=== PATIENT | female | born 1955 | race Caucasian/White ===

== ENCOUNTER 2023-06-25 12:02 | Inpatient (IN) ==
[2023-06-25] MEDS ORDERED: Heparin IV Adult Wt-Based Standard w/ INITIAL Bolus Protocol IV STA (13:22)
[2023-06-25] MEDS ORDERED: HEPARIN SOD (PORCINE) 1000 UNIT/ML IV ONE (13:37)
[2023-06-25 13:55] LABS: BUN Creatinine Ratio 22.4 (10-20); Calcium 9.5 mg/dl (8.6-10.3); Creatinine Clr Calc Pharmacy 77.1 ml/min; Est GFR (African American) 106.2 ml/min; Est GFR (Non-African American) 91.6 ml/min; Potassium 3.3 mmol/L (3.5-5.1)
[2023-06-25 13:58] LABS: Basophils # (auto) 0.08 K/uL (0.00-0.20); Basophils % (auto) 0.8 %; Eosinophils # (auto) 0.22 K/uL (0.00-0.50); Eosinophils % (auto) 2.2 %; Hematocrit (blood only) 45.9 % (37.0-47.0); Hemoglobin 15.3 g/dl (12.0-16.0); Immature Granulocytes # (auto) 0.05 K/uL (0.01-0.20); Immature Granulocytes % (auto) 0.5 %; Lymphocytes # (auto) 2.27 K/uL (1.20-3.40); Lymphocytes % (auto) 22.7 %; Mean Corpuscular Hgb Conc 33.3 g/dL (32.0-36.0); Mean Corpuscular Volume 92.9 fL (80.0-100.0); Mean Platelet Volume 9.5 fL (9.4-12.4); Monocytes # (auto) 0.86 K/uL (0.11-0.59); Monocytes % (auto) 8.6 %; Neutrophils # (auto) 6.51 K/uL (1.40-6.50); Neutrophils % (auto) 65.2 %; Platelet Count 380 K/uL (130-400); RDW Coefficient of Variation 14.2 % (11.5-14.5); RDW Standard Deviation 47.7 fL (36.4-46.3); Red Blood Count 4.94 M/uL (4.20-5.40); White Blood Count 9.99 K/ul (4.8-10.8)
[2023-06-25 14:01] LABS: Troponin I High Sensitivity 3.5 pg/ml (0-14)
[2023-06-25] MEDS: HEPARIN SOD (PORCINE) 1000 UNIT/ML IV ONE (14:03)
[2023-06-25] MEDS: HEPARIN SODIUM/DEXTROSE 25,000 UNITS/500 ML BAG IV SCH (14:03)
--- NOTE | 2023-06-25 14:09 | XRay Report ---
SINGLE VIEW CHEST CLINICAL HISTORY: Atypical chest pain. FINDINGS: An AP, portable, upright chest radiograph is obtained. No prior studies are available for c omparison at the time of dictation. The cardiomediastinal silhouette is unremarkable. Nonspecific int erstitial thickening is likely chronic. There is mild bibasilar scarring/atelectasis. The lungs and p leural spaces are otherwise clear. No pneumothorax is seen. The skeletal structures are osteopenic. T he bony thorax is grossly intact. IMPRESSION: No acute cardiopulmonary abnormality. ACT 112: Negative or not required by law. Electronically signed by: Brian Gunderson M.D. 06/25/2023 2:08 PM
[2023-06-25 14:13] LABS: Partial Thromboplastin Ratio 0.9; Partial Thromboplastin Time 25 Seconds (21-31); Prothrombin Time 10.6 Seconds (9.0-12.0)
[2023-06-25 14:42] LABS: ANTI-Xa, UFH(UnfractionatedHep 1.36 IU/ml (0.3-0.7)
--- NOTE | 2023-06-25 14:48 | History & Physical Report ---
Date of Service June 25, 2023 Assessment & Plan (1) Right leg DVT: Plan: Assessment: 1. Acute DVT right lower extremity. Again this patient has been on Eliquis for the last 2 weeks due to her recent stroke. She has been compliant with her Eliquis the last 2 weeks. She noticed the swelling after starting on Eliquis. Therefore this is considered an Eliquis failure. Consultation obtained with hematology/coagulopathies. Heparin drip being recommended this has been started in the ER and will be continued. Heparin drip is already been commenced therefore hypercoagulable panel has not been drawn. 2. Recent cerebellar stroke. The patient states he was discharged on full- strength aspirin from [place] and on outpatient follow-up primary care started her on Eliquis in addition to the aspirin 2 weeks ago. Her balance issues are improving with therapy. She was walking with a walker upon discharge now only walking with a cane outside the home but independently in the home. 3. Hypertension. Continue same home meds. 4. Dyslipidemia. Continue same home meds. 5. Remote history of DVT same extremity. 2001./Provoked. 6. Osteoarthritis. Stable. 7. Debility from recent stroke in March 2023. Improving with outpatient therapy. Plan: As described above. Please refer to orders for further planning. History of Present Illness Chief Complaint: DVT right leg. Primary Care Provider: Stephanie Stock DO This is a 67-year-old female who apparently approximate 2 years ago had a prov oked DVT in the right leg. Was treated with Eliquis at that time and subsequently taken off Eliquis 3 to 6 months after her acute event. In March 2023 she was diagnosed with a cerebellar stroke at [facility] facility was transferred to [facility] at which time she was placed on a heparin drip during her stay and discharged on a full-strength aspirin. On outpatient follow-up her primary care physician started her on Eliquis due to the fact that she was on Eliquis in the past and had an acute stroke. She has been on Eliquis for approximately 2 weeks. Since commencing Eliquis over the last few days she has noticed her right leg become more more swollen. She saw her coroner transport technician today Dr. Franklin who ordered an outpatient ultrasound of the right lower extremity which came back positive for an occlusive DVT in the right lower extremity. The patient was directed to the ER at that time. The ER provider obtained consultation with coagulopathies from pathology Dr. Lopez -who recommended beginning the patient on a heparin infusion. Are being called admit the patient for further evaluation and treatment of the occlusive DVT with failed Eliquis treatment. The patient does admit to being completely compliant with her Eliquis over the last 2 weeks. We have consulted both specialist described above. Past medical/past surgical history. See below. Social history the patient is lives with her of 50 years. She was a half a pack-a-day smoker up to March 2023 when she had her stroke. She denies any current use of alcohol tobacco or illicit street drugs. She is retired from the retail industry. Family medical history obtained and noncontributory to present illness Allergies Allergy/AdvReac Type Severity Reaction Status Date / Time lisinopril Allergy Verified 09/27/21 09:50 sulfamethoxazole Allergy Verified 09/27/21 09:50 [From Bactrim] trimethoprim [From Bactrim] Allergy Verified 09/27/21 09:50 Home Medications Medication Instructions Recorded Confirmed Type cholecalciferol (vitamin D3) 25 25 mcg PO DAILY 09/27/21 09/27/21 History mcg (1,000 unit) capsule gabapentin 100 mg capsule 100 mg PO DAILY 09/27/21 09/27/21 History losartan 25 mg tablet 25 mg PO DAILY 09/27/21 09/27/21 History pravastatin 20 mg tablet 20 mg PO DAILY 09/27/21 09/27/21 History vitamin B complex (B 1 tab PO DAILY 09/27/21 09/27/21 History Complex-Vitamin B12 tablet) apixaban 2.5 mg tablet (Eliquis) 2.5 mg PO BID 06/25/23 06/25/23 History Past Med/Surg History Medical History (Updated 06/25/23 @ 14:41 by Hever Hinton, PhD, DO) History of cerebellar stroke Hyperlipidemia Hypertension Right leg DVT Surgical History (Updated 06/25/23 @ 14:41 by Hever Hinton, PhD, DO) H/O hysterectomy for benign disease Social History Smoking Status: Never smoker Feels Safe at Home: Yes Review of Systems Review of Systems: A 10 point review of system was obtained and unless otherwise stated here or in history of present illness are negative and noncontributory to chief complaint. Physical Exam Physical Exam: In General: In general is a pleasant 67-year-old female who is alert and oriented x 3 at the time of my exam. she is accompanied by her at the time of my examination. She interacts appropriately and pleasantly. HEENT: Normocephalic atraumatic pupils are equal round and reactive to light bilaterally. No scleral icterus no conjunctival injection external auditory canals are patent septum is in the midline nose is without discharge oral mucosa is pink and moist without lesion. NECK: Supple no rigidity no lymphadenopathy no thyromegaly no carotid bruits no JVD no masses. HEART: Regular rate and rhythm I do not appreciate any ectopy or rub. No murmur. LUNGS: Clear to auscultation bilaterally and anteriorly with no evidence of adventitious sounds/wheezes rales or rhonchi. ABDOMEN: Soft nontender, no rebound, no peritoneal signs, positive bowel sounds, no appreciable organomegaly. EXTREMITIES: Extremities are intact, peripheral pulses are palpable and equal and strong x 4. Patient has some mild varicosities of the lower extremities bilaterally. The patient has a swollen right lower extremity compared to the left. From the calf up to including the thigh. Again pulses are palpable strong on this extremity. It is warm to the touch. Her strength is 4+ out of 5 in extremities x 4. She is currently still convalescing her stroke which caused her balance issues and she became weak and debilitated during her hospitalization she was walking with a walker but over the last couple weeks is now ambulating with a cane outside the house but independently inside the house NEUROLOGICAL: Cranial nerves II through XII are grossly intact with no focal deficit elicited upon examination. No tremor. Results & Data Results & Data Vital Signs (Past 12 Hours) Vital Signs Temp Pulse Resp BP Pulse Ox 06/25/23 13:40 84 06/25/23 12:18 36.5 C 81 20 151/94 H 97 Code Status & VTE Plan Code Status Full code. I personally discussed with patient VTE Prophylaxis Plan VTE Prophylaxis will be ordered: Yes PG Care Time/CCT Total # of Minutes Spent Total Time Spent with Patient: Total time spent is greater than 50% in coordination of care (as documented) at patient's floor/unit and/or counseling patient: Coding Level of Care Code 46793 INT INP/OBS CARE MIN Diagnoses Right leg DVT I82.401
--- NOTE | 2023-06-25 15:59 | Emergency Department Note ---
History of Present Illness General Chief Complaint: Abnormal Labs/Diagnostic Testing Stated Complaint: ABNORMAL ULTRASOUND, SENT BY US Time Seen by Provider: 06/25/23 12:24 History of Present Illness Provider Complaint: + abnormal lab Description of abnormal result: DVT and right lower extremity ultrasound. Associated symptoms: no chest pain or no shortness of breath HPI narrative: 67-year-old female presents emergency department for DVT in her right lower extremity that was found on outpatient ultrasound. Patient states that she has been having swelling in her right lower extremity but no pain for the last few weeks. She reports no chest pain or difficulty breathing. Patient states she is on Eliquis. Patient states that she has been on Eliquis for the last month after being diagnosed with a stroke secondary to a clot in her cerebellum. Patient states that in the past she was on Eliquis but then spoke with her doctor Dr. Franklin and she was switched to aspirin. Home Medications Medication Instructions Recorded Confirmed Type cholecalciferol (vitamin D3) 25 25 mcg PO DAILY 09/27/21 06/25/23 History mcg (1,000 unit) capsule pravastatin 20 mg tablet 0 mg PO DAILY 09/27/21 06/25/23 History vitamin B complex (B 1 tab PO DAILY 09/27/21 06/25/23 History Complex-Vitamin B12 tablet) apixaban 2.5 mg tablet (Eliquis) 2.5 mg PO BID 06/25/23 06/25/23 History aspirin 325 mg tablet,delayed 325 mg PO DAILY 06/25/23 06/25/23 History release atorvastatin 40 mg tablet 40 mg PO HS 06/25/23 06/25/23 History gabapentin 800 mg tablet 0 mg PO UD 06/25/23 06/25/23 History losartan 50 mg-hydrochlorothiazide 1 tab PO DAILY 06/25/23 06/25/23 History 12.5 mg tablet trazodone 50 mg tablet 25 mg PO HS 06/25/23 06/25/23 History Allergies Allergy/AdvReac Type Severity Reaction Status Date / Time lisinopril Allergy Verified 09/27/21 09:50 sulfamethoxazole Allergy Verified 09/27/21 09:50 [From Bactrim] trimethoprim [From Bactrim] Allergy Verified 09/27/21 09:50 Past Med/Surg History Medical History History of cerebellar stroke Hyperlipidemia Hypertension Right leg DVT Surgical History H/O hysterectomy for benign disease Social History Smoking Status: Never smoker Feels Safe at Home: Yes Physical Exam 2 Vital Signs: Vital Signs - 24 hr 06/25/23 12:18 06/25/23 13:40 Temperature 36.5 C Temperature Source Temporal Artery Sc an Pulse Rate 81 84 Respiratory Rate 20 Respiratory Effort / Characteristics Non-Labored Sponta neous Respiratory Depth Normal Blood Pressure 151/94 H Blood Pressure Joanna n 113 Pulse Oximetry 97 Sepsis Recent Feve r Within 48 Hours No Sepsis New/Unexpla ined Change in Men james Status No Sepsis Action Take n by Nursing No Action Required Physical Exam: Physical Exam GENERAL: oriented to person, place, and time. appears well-developed and well- nourished. HENT: Exam performed. - Head: Normocephalic and atraumatic. EYES: Conjunctivae and EOM are normal. Right eye exhibits no discharge. Left eye exhibits no discharge. No scleral icterus. NECK: Normal range of motion. Neck supple. No JVD present. CV: Normal rate, regular rhythm, normal heart sounds and intact distal pulses. Palpable radial pulses bue. PULM/CHEST: Effort normal and breath sounds normal. No respiratory distress. No stridor. no wheezes. no rales. ABD: The abdomen is soft. There is no tenderness. MUSC: Right lower extremity mild swelling greater than the left. NEURO: Motor and sensation grossly intact. SKIN: Skin is warm and dry. He is not diaphoretic. PSYCH: normal mood and affect. Behavior is normal. Judgment and thought content normal. Course Course 1224: The patient was evaluated in room B4. A complete history and physical exam was performed Cardiac monitoring: An order was placed for continuous cardiac monitoring. The monitor shows a rate of 70 with sinus rhythm interpreted by me 1317: Vital signs stable spoke with Dr. Lopez anticoagulation specialist both she and I agree that the patient should be started on heparin and be admitted to the hospitalist given failed Eliquis treatment. 1447: Vital signs stable. Spoke with Dr. Rigoberto rueda-onc and she agrees with plan to start the patient on heparin if she wants to bridge the patient to Coumadin. Administered Medications Discontinued Medications Heparin Sodium (Porcine) (Heparin Sod (Porcine) 1000 Unit/Ml) 5,000 units IV NOW ONE Stop: 06/25/23 13:46 Last Admin: 06/25/23 14:03 Dose: 5,000 units Documented By: HVDarrion Co-signed By: QUINCY Heparin Sodium/Dextrose (Heparin Sodium/Dextrose) 25,000 units in 500 mls @ 21 mls/hr IV .[id number] [facility]; Protocol Stop: 07/25/23 13:44 Last Admin: 06/25/23 14:03 Dose: 1,050 units/hr, 21 mls/hr Documented By: HVS Co-signed By: QUINCY Medical Decision Making Medical Records Attestation: I reviewed the patient's medical records. External medical records reviewed. Patient had an outpatient ultrasound of her right lower extremity today which showed an occlusive DVT in the right superficial femoral and right popliteal veins. Laboratory Data Attestation: I reviewed the patient's lab results. 06/25/23 12:30 06/25/23 12:30 Lab Results 06/25/23 Range/Units 12:30 WBC 9.99 (4.8-10.8) K/ul RBC 4.94 (4.20-5.40) M/uL Hgb 15.3 (12.0-16.0) g/dl Hct 45.9 (37.0-47.0) % MCV 92.9 (80.0-100.0) fL MCH 31.0 (25.0-34.0) pg MCHC 33.3 (32.0-36.0) g/dL RDW Std Deviation 47.7 H (36.4-46.3) fL RDW Coeff of Anu 14.2 (11.5-14.5) % Plt Count 380 (130-400) K/uL MPV 9.5 (9.4-12.4) fL Immature Gran % (Auto) 0.5 % Neut % (Auto) 65.2 % Lymph % (Auto) 22.7 % [place] % (Auto) 8.6 % Eos % (Auto) 2.2 % Baso % (Auto) 0.8 % Neut # (Auto) 6.51 H (1.40-6.50) K/uL Lymph # (Auto) 2.27 (1.20-3.40) K/uL [place] # (Auto) 0.86 H (0.11-0.59) K/uL Eos # (Auto) 0.22 (0.00-0.50) K/uL Baso # (Auto) 0.08 (0.00-0.20) K/uL Immature Gran # (Auto) 0.05 (0.01-0.20) K/uL PT 10.6 (9.0-12.0) Seconds INR 1.0 (0.9-1.1) APTT 25 (21-31) Seconds PTT Ratio 0.9 Heparin Anti-Xa, Unfract 1.36 H* (0.3-0.7) IU/ml Sodium 138 (136-145) mmol/L Potassium 3.3 L (3.5-5.1) mmol/L Chloride 102 (98-107) mmol/L Carbon Dioxide 27 (21-32) mmol/L Anion Gap 9 (3-11) BUN 15 (6-23) mg/dl Creatinine 0.67 (0.6-1.2) mg/dl Est Cr Clr Drug Dosing 77.1 ml/min Est GFR ( Amer) 106.2 ml/min Est GFR (Non-Af Amer) 91.6 ml/min BUN/Creatinine Ratio 22.4 H (10-20) Glucose 103 H (70-99(Fasting)) mg/dl Calcium 9.5 (8.6-10.3) mg/dl Troponin I High Sens 3.5 (0-14) pg/ml Lipase 11 (11-82) U/L Imaging Data Attestation: I personally reviewed and interpreted this imaging study as follows: My Impression: Chest x-ray negative. Airway clear. No pneumothorax. No consolidation. No cardiomegaly or cephalization.. No free air under the diaphragm. No fractures of the skeletal structures. Radiologist's Impression: Chest X-Ray 06/25/23 13:16 SINGLE VIEW CHEST CLINICAL HISTORY: Atypical chest pain. FINDINGS: An AP, portable, upright chest radiograph is obtained. No prior studies are available for comparison at the time of dictation. The cardiomediastinal silhouette is unremarkable. Nonspecific interstitial thickening is likely chronic. There is mild bibasilar scarring/atelectasis. The lungs and pleural spaces are otherwise clear. No pneumothorax is seen. The skeletal structures are osteopenic. The bony thorax is grossly intact. IMPRESSION: No acute cardiopulmonary abnormality. ACT 112: Negative or not required by law. Electronically signed by: Brian Gunderson M.D. 06/25/2023 2:08 PM ECG Data Attestation: I personally reviewed and interpreted this ECG as follows: Rate (beats per minute): 69 Rhythm: normal sinus Findings: no ST depression, no ST elevation or no prolonged QT Additional Comments: QRS 70 MDM Narrative 1224: The patient was evaluated in room B4. A complete history and physical exam was performed Cardiac monitoring: An order was placed for continuous cardiac monitoring. The monitor shows a rate of 70 with sinus rhythm interpreted by me 1317: Vital signs stable spoke with Dr. Lopez anticoagulation specialist both she and I agree that the patient should be started on heparin and be admitted to the hospitalist given failed Eliquis treatment. 1447: Vital signs stable. Spoke with Dr. Rigoberto rueda-onc and she agrees with plan to start the patient on heparin if she wants to bridge the patient to Coumadin. Impression & Plan Right leg DVT Critical Care Time Critical Care Time: Yes Total Critical Care Time: 44 I have personally spent greater than 44 minutes of critical care time in the direct management of this patient. This includes bedside care, interpretation of diagnostic studies, and testing, discussion with consultants, patient, and family members, and other required patient management activities. This 44 minutes is in excess of all separately billable procedures. Discharge Plan Visit Data Chief Complaint: Abnormal Labs/Diagnostic Testing Stated Complaint: ABNORMAL ULTRASOUND, SENT BY US ED Provider: Carlos English Discharge Problem: Right leg DVT Patient Disposition: Admitted As Inpatient Discharge Instructions Interventions: ED Discharge Assessment Last Done: 06/25/23 15:34 Discharge Problem: Right leg DVT Qualifiers: Affected thrombotic vein of extremity: unspecified vein of extremity C hronicity: acute Qualified Code(s): I82.401 - Acute embolism and thrombosis of unspecified deep veins of right lower extremity
[2023-06-25] MEDS: ENOXAPARIN 80 MG/0.8 ML SYR SQ SCH (17:10)
[2023-06-25] MEDS ORDERED: ENOXAPARIN 1 MG/KG SC SCH (18:30)
[2023-06-25 22:40] LABS: Basophils # (auto) 0.08 K/uL (0.00-0.20); Basophils % (auto) 0.9 %; Eosinophils % (auto) 3.2 %; Hematocrit (blood only) 40.6 % (37.0-47.0); Hemoglobin 13.8 g/dl (12.0-16.0); Immature Granulocytes # (auto) 0.04 K/uL (0.01-0.20); Immature Granulocytes % (auto) 0.4 %; Lymphocytes # (auto) 3.03 K/uL (1.20-3.40); Lymphocytes % (auto) 32.3 %; Mean Corpuscular Hemoglobin 30.8 pg (25.0-34.0); Mean Corpuscular Volume 90.6 fL (80.0-100.0); Mean Platelet Volume 8.9 fL (9.4-12.4); Monocytes # (auto) 0.83 K/uL (0.11-0.59); Monocytes % (auto) 8.9 %; Neutrophils # (auto) 5.09 K/uL (1.40-6.50); Neutrophils % (auto) 54.3 %; Platelet Count 326 K/uL (130-400); RDW Coefficient of Variation 13.9 % (11.5-14.5); RDW Standard Deviation 46.6 fL (36.4-46.3); Red Blood Count 4.48 M/uL (4.20-5.40); White Blood Count 9.37 K/ul (4.8-10.8)
[2023-06-26 04:18] LABS: Basophils % (auto) 1.2 %; Eosinophils # (auto) 0.37 K/uL (0.00-0.50); Eosinophils % (auto) 4.3 %; Hematocrit (blood only) 39.9 % (37.0-47.0); Hemoglobin 13.5 g/dl (12.0-16.0); Immature Granulocytes # (auto) 0.04 K/uL (0.01-0.20); Immature Granulocytes % (auto) 0.5 %; Lymphocytes # (auto) 2.78 K/uL (1.20-3.40); Lymphocytes % (auto) 32.3 %; Mean Corpuscular Hgb Conc 33.8 g/dL (32.0-36.0); Mean Corpuscular Volume 91.5 fL (80.0-100.0); Mean Platelet Volume 8.9 fL (9.4-12.4); Monocytes # (auto) 0.82 K/uL (0.11-0.59); Monocytes % (auto) 9.5 %; Neutrophils % (auto) 52.2 %; Platelet Count 320 K/uL (130-400); RDW Coefficient of Variation 14.1 % (11.5-14.5); RDW Standard Deviation 47.7 fL (36.4-46.3); Red Blood Count 4.36 M/uL (4.20-5.40); White Blood Count 8.61 K/ul (4.8-10.8)
[2023-06-26 04:35] LABS: Albumin Globulin Ratio 1.4 (0.9-2); Albumin Level 3.4 gm/dl (3.4-5.0); Bilirubin,Total 0.7 mg/dl (0.2-1.0); Calcium 8.4 mg/dl (8.6-10.3); Chol HDL Ratio 3.3 (0-5); Creatinine Clr Calc Pharmacy 86.4 ml/min; Est GFR (African American) 110.1 ml/min; Globulin 2.4 gm/dl (2.5-4.0); Magnesium 1.8 mg/dl (1.7-2.4); Potassium 3.4 mmol/L (3.5-5.1); Total Protein 5.8 gm/dl (6.0-8.3)
--- NOTE | 2023-06-26 07:34 | Hospitalist Progress Note ---
Date of Service June 26, 2023 Assessment & Plan (1) Right leg DVT: Plan: Acute DVT right lower extremity. Again this patient has been on Eliquis for the last 2 weeks due to her recent stroke. She has been compliant with her Eliquis the last 2 weeks. She noticed the swelling after starting on Eliquis. Therefore this is considered an Eliquis failure. Consultation obtained with hematology/coagulopathies. -continue enoxaparin, bridging onto coumadin -enoxaparin teaching -start coumadin 10 mg x 1 this afternoon, daily AM INR -anticoagulation clinic referral -primary care follow up for INR check late this week - PCP is Dr. Stock reviewed outside and previous outpatient recordshad DVT in 2021. Some hypercoagulability testing was done at that time. Factor V Leiden was negative, prothrombin gene mutation was negative, beta-2 glycoprotein was negative, cardiolipin was negative, MPN genetic panel was negative - protein C, S, Antithrombin III activity are problematic currently because of acute clot and anticoagulation, can be considered in future as outpatient Plan ASD Cerebellar stroke 03/2023 The patient states he was discharged on full-strength aspirin from [place] and on outpatient follow-up primary care started her on Eliquis in addition to the aspirin 2 weeks ago. Her balance issues are improving with therapy. She was walking with a walker upon discharge now only walking with a cane outside the home but independently in the home. -she has a CT angiogram scheduled at [facility] next week by her neurologist in [place] -will fax updated BMP ([phone]), outpatient labs were supposed to be done 06/26 -continue ASA, statin (LDL 66), anticoagulation Hypertension. Continue same home meds. Dyslipidemia. Continue same home meds. Remote history of DVT same extremity. 2001./Said to be provoked. Osteoarthritis. Stable. Debility from recent stroke in March 2023. Improving with outpatient therapy. replaced mild hypokalemia po DVT ppx: anticoagulated Admission and Anticipated Discharge Date Admission Date: June 25, 2023 Subjective R leg swelling and pain improved overnight no chest pain or dyspnea Physical Exam 2 Physical Exam: PHYSICAL EXAMINATION Last 24h vital signs reviewed, see documentation in flowsheet General: comfortable appearing, no distress HEENT: Normocephalic, atraumatic, pupils round and equal, sclerae anicteric, no conjunctival injection, moist mucus membranes Lungs: Normal respiratory effort. Clear to auscultation bilaterally. No RRW Heart: Regular rate and rhythm, no murmurs. No JVD Abdomen: Soft, nontender, nondistended. Bowel sounds present. Extremities: Warm, dry, well-perfused. mild right lower extremity swelling and minimal pitting edema near the ankle nontender to palpation Neuro: Alert and oriented x 4, face symmetric, moves 4 extremities well Psych: Normal affect and behavior Results & Data Results & Data Vital Signs (Past 12 Hours) Vital Signs Temp Pulse Pulse Resp BP Pulse Ox O2 Del Method 06/26/23 07:19 Room Air 06/26/23 07:00 81 16 06/26/23 04:08 36.9 C 82 13 138/82 93 Room Air 06/26/23 00:42 84 06/25/23 23:48 36.7 C 83 18 129/78 95 Room Air 06/25/23 20:31 37.2 C 96 H 21 134/85 93 Room Air Laboratory Results 06/26/23 04:03 06/26/23 04:03 Diagnostic Findings Chest X-Ray 06/25/23 13:16 SINGLE VIEW CHEST CLINICAL HISTORY: Atypical chest pain. FINDINGS: An AP, portable, upright chest radiograph is obtained. No prior studies are available for comparison at the time of dictation. The cardiomediastinal silhouette is unremarkable. Nonspecific interstitial thickening is likely chronic. There is mild bibasilar scarring/atelectasis. The lungs and pleural spaces are otherwise clear. No pneumothorax is seen. The skeletal structures are osteopenic. The bony thorax is grossly intact. IMPRESSION: No acute cardiopulmonary abnormality. ACT 112: Negative or not required by law. Electronically signed by: Brian Gunderson M.D. 06/25/2023 2:08 PM 06/26/23 04:03 06/26/23 04:03 PG Care Time/CCT Total # of Minutes Spent Total Time Spent with Patient: Total time spent is greater than 50% in coordination of care (as documented) at patient's floor/unit and/or counseling patient: Coding Level of Care Code 29869 SUB INP/OBS CARE 2/35MIN Diagnoses Right leg DVT I82.401 Affected thrombotic vein of extremity: unspecified vein of extremity Chronicity: acute (1) Right leg DVT Affected thrombotic vein of extremity: unspecified vein of extremity C hronicity: acute Qualified Code(s): I82.401 - Acute embolism and thrombosis of unspecified deep veins of right lower extremity
[2023-06-26] MEDS: POTASSIUM CHLORIDE CRTAB 20 MEQ TABCR PO ONE (09:06)
[2023-06-26] MEDS: ACETAMINOPHEN 325 MG TAB PO PRN (09:14)
--- NOTE | 2023-06-26 14:46 | Electrocardiogram Report ---
Test Reason : Blood Pressure : / mmHG Vent. Rate : 069 BPM Atrial Rate : 069 BPM P-R Int : 148 ms QRS Dur : 070 ms QT Int : 390 ms P-R-T Axes : 035 014 028 degrees QTc Int : 417 ms Normal sinus rhythm Normal ECG When compared with ECG of 04-OCT-2011 13:58, No significant change was found Confirmed by César Beasley ([id number]) on 06/26/2023 2:46:07 PM Referred By: REFERRED SELF Confirmed By:César Beasley
--- NOTE | 2023-06-26 15:23 | Oncology Consultation ---
Date of Consultation June 26, 2023 Assessment & Plan (1) Right leg DVT: (2) History of cerebellar stroke: Plan -Patient with history of CVA and recurrent unprovoked right lower extremity DVT. Previously obtained hypercoagulable workup negative for inherited/acquired thrombophilia. Was on prophylactic dosing of Eliquis prior to recent presentation with recurrent right lower extremity DVT. Given recurrent VTE, embolic CVA she will need Indefinite anticoagulation. Would call this Eliquis failure since VTE occurred while on prophylactic dosing. -Continue with therapy low molecular weight heparin and warfarin. She will need to remain on low molecular weight heparin for 5 days and at least 24 hours after therapeutic INR has been achieved. Thank you for this consult. Hematology will plan to follow patient peripherally while she is in the hospital and she is already scheduled for outpatient follow- up. Please feel free to call if you have any further questions. History of Present Illness Reason for Consultation: Recurrent right lower extremity DVT, Eliquis failure Attending Physician: Alison Iniguez MD History of Present Illness Ms. Garcia is a pleasant 67-year-old female with history of right lower extremity DVT diagnosed in Jun, 2021 for which she was on anticoagulation with therapeutic Eliquis for 6 months prior to switching to prophylactic dosing of Xarelto 10 mg p.o. daily due to high co-pay with Eliquis. She subsequently decided to discontinue Xarelto after about 4 months. More recently, she was diagnosed with embolic CVA after presenting to her local ED with complaints of facial numbness, right arm numbness and dysarthria. Due to concern for CVA, she was transferred to [facility] in [place]. MRI brain revealed small cerebellar hemisphere infarct. 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 Could not receive tPA as she was out of window for tPA. TTE revealed large shunting with PFO versus intrapulmonary shunt. DEVYN revealed small ASD with no thrombus. Lower extremity ultrasound obtained at that time was negative for DVT. Was placed on heparin while inpatient and subsequently discharged home on aspirin 325 mg p.o. daily. She states that she had Holter monitor placed upon discharge which was unremarkable. Scheduled to follow-up with stroke clinic in [place] around August,. She states that her PCP placed her on Eliquis 2.5 mg p.o. twice daily which she states she has been compliant with. She presented to hematology clinic yesterday and was noted to have right lower extremity swelling and calf pain for which ultrasound right lower extremity was obtained which revealed occlusive DVT within the right superficial femoral and right popliteal veins. She was subsequently admitted to [facility] and placed initially on therapeutic heparin which was later switched to weight-based low molecular weight heparin which she remains on at this time. Of note, hypercoagulable workup obtained on 08/31/2021 including testing for antiphospholipid syndrome, protein C activity, protein S activity, Antithrombin III activity, factor V Leiden mutation, prothrombin gene mutation, MPN mutation analysis were all negative. Allergies Allergy/AdvReac Type Severity Reaction Status Date / Time lisinopril Allergy Verified 09/27/21 09:50 sulfamethoxazole Allergy Verified 09/27/21 09:50 [From Bactrim] trimethoprim [From Bactrim] Allergy Verified 09/27/21 09:50 Home Medications Medication Instructions Recorded Confirmed Type cholecalciferol (vitamin D3) 25 25 mcg PO DAILY 09/27/21 06/25/23 History mcg (1,000 unit) capsule pravastatin 20 mg tablet 0 mg PO DAILY 09/27/21 06/25/23 History vitamin B complex (B 1 tab PO DAILY 09/27/21 06/25/23 History Complex-Vitamin B12 tablet) apixaban 2.5 mg tablet (Eliquis) 2.5 mg PO BID 06/25/23 06/25/23 History aspirin 325 mg tablet,delayed 325 mg PO DAILY 06/25/23 06/25/23 History release atorvastatin 40 mg tablet 40 mg PO HS 06/25/23 06/25/23 History gabapentin 800 mg tablet 0 mg PO UD 06/25/23 06/25/23 History losartan 50 mg-hydrochlorothiazide 1 tab PO DAILY 06/25/23 06/25/23 History 12.5 mg tablet trazodone 50 mg tablet 25 mg PO HS 06/25/23 06/25/23 History Patient History Medical History History of cerebellar stroke Hyperlipidemia Hypertension Right leg DVT Surgical History H/O hysterectomy for benign disease Social History Smoking Status: Former smoker Second Hand Exposure: No; Do You Dip or Chew Tobacco: No; Hx Alcohol Use: No Hx Substance Use: No Preferred Language: Dominican Communication Ability: Effective Livestock Farm Manager Required: No Beliefs That Will Affect Care: None Current Living Situation: Spouse Feels Safe at Home: Yes Assistive Devices: Cane and Walker Results & Data Vital Signs (Past 12 Hours) Vital Signs Temp Pulse Pulse Resp BP BP Pulse Ox 06/26/23 15:01 36.7 C 75 18 127/69 93 06/26/23 11:31 36.7 C 06/26/23 11:27 80 13 94 06/26/23 11:27 135/88 06/26/23 11:00 83 24 06/26/23 10:00 68 17 06/26/23 09:12 123/80 06/26/23 09:12 76 16 95 06/26/23 09:00 80 14 06/26/23 08:00 85 19 06/26/23 08:00 36.6 C 06/26/23 07:19 06/26/23 07:00 81 16 06/26/23 04:08 36.9 C 82 13 138/82 93 O2 Del Method 06/26/23 15:01 Room Air 06/26/23 11:31 06/26/23 11:27 Room Air 06/26/23 11:27 06/26/23 11:00 06/26/23 10:00 06/26/23 09:12 06/26/23 09:12 Room Air 06/26/23 09:00 06/26/23 08:00 06/26/23 08:00 06/26/23 07:19 Room Air 06/26/23 07:00 06/26/23 04:08 Room Air (1) Right leg DVT Affected thrombotic vein of extremity: unspecified vein of extremity Chronicity: acute Qualified Code(s): I82.401 - Acute embolism and thrombosis of unspecified deep veins of right lower extremity
[2023-06-26] MEDS ORDERED: GABAPENTIN 800 MG TAB PO SCH (15:42)
[2023-06-26] MEDS: WARFARIN SOD 10 MG TAB PO SCH (16:04)
[2023-06-26] MEDS: traZODone HCL 50 MG TAB PO SCH (20:44)
[2023-06-26] MEDS: ATORVASTATIN 40 MG TAB PO SCH (20:44)
[2023-06-27 07:09] LABS: Hematocrit (blood only) 42.4 % (37.0-47.0); Hemoglobin 14.1 g/dl (12.0-16.0); Mean Corpuscular Hemoglobin 31.1 pg (25.0-34.0); Mean Corpuscular Hgb Conc 33.3 g/dL (32.0-36.0); Mean Corpuscular Volume 93.6 fL (80.0-100.0); Platelet Count 338 K/uL (130-400); RDW Coefficient of Variation 14.1 % (11.5-14.5); Red Blood Count 4.53 M/uL (4.20-5.40); White Blood Count 8.75 K/ul (4.8-10.8)
[2023-06-27 07:24] LABS: BUN Creatinine Ratio 18.5 (10-20); Calcium 8.5 mg/dl (8.6-10.3); Creatinine Clr Calc Pharmacy 79.2 ml/min; Est GFR (African American) 107.2 ml/min; Est GFR (Non-African American) 92.5 ml/min; Potassium 4.3 mmol/L (3.5-5.1)
[2023-06-27 07:36] LABS: Prothrombin Time 11.4 Seconds (9.0-12.0)
[2023-06-27] MEDS: LOSARTAN/HCTZ 50/12.5MG TAB PO SCH (09:06)
--- NOTE | 2023-06-27 15:34 | Discharge Summary ---
Date of Service June 27, 2023 Admission HPI Per Admitting Provider This is a 67-year-old female who apparently approximate 2 years ago had a provoked DVT in the right leg. Was treated with Eliquis at that time and subsequently taken off Eliquis 3 to 6 months after her acute event. In March 2023 she was diagnosed with a cerebellar stroke at [facility] facility was transferred to [facility] at which time she was placed on a heparin drip during her stay and discharged on a full-strength aspirin. On outpatient follow-up her primary care physician started her on Eliquis due to the fact that she was on Eliquis in the past and had an acute stroke. She has been on Eliquis for approximately 2 weeks. Since commencing Eliquis over the last few days she has noticed her right leg become more more swollen. She saw her groundwater monitoring technician today Dr. Franklin who ordered an outpatient ultrasound of the right lower extremity which came back positive for an occlusive DVT in the right lower extremity. The patient was directed to the ER at that time. The ER provider obtained consultation with coagulopathies from pathology Dr. Lopez -who recommended beginning the patient on a heparin infusion. Are being called admit the patient for further evaluation and treatment of the occlusive DVT with failed Eliquis treatment. The patient does admit to being completely compliant with her Eliquis over the last 2 weeks. We have consulted both specialist described above. Past medical/past surgical history. See below. Social history the patient is lives with her of 50 years. She was a half a pack-a-day smoker up to March 2023 when she had her stroke. She denies any current use of alcohol tobacco or illicit street drugs. She is retired from the retail industry. Family medical history obtained and noncontributory to present illness Principal Diagnosis Acute RLE DVT Discharge Exam PHYSICAL EXAMINATION Last 24h vital signs reviewed, see documentation in flowsheet General: comfortable appearing, no distress HEENT: Normocephalic, atraumatic, pupils round and equal, sclerae anicteric, no conjunctival injection, moist mucus membranes Lungs: Normal respiratory effort. Heart: Abdomen: nondistended. Extremities: Warm, dry, well-perfused. RLE mild swelling and edema resolved, nontender to palpation Neuro: Alert and oriented x 4, face symmetric, moves 4 extremities well Psych: Normal affect and behavior Discharge Data Allergies Allergy/AdvReac Type Severity Reaction Status Date / Time lisinopril Allergy Verified 09/27/21 09:50 sulfamethoxazole Allergy Verified 09/27/21 09:50 [From Bactrim] trimethoprim [From Bactrim] Allergy Verified 09/27/21 09:50 Consultations 06/25/23 13:55 ED Decision to Admit Stat 06/25/23 16:27 Consult Hematology Routine Ordered Studies Chest X-Ray 06/25/23 13:16 SINGLE VIEW CHEST CLINICAL HISTORY: Atypical chest pain. FINDINGS: An AP, portable, upright chest radiograph is obtained. No prior studies are available for comparison at the time of dictation. The cardiomediastinal silhouette is unremarkable. Nonspecific interstitial thickening is likely chronic. There is mild bibasilar scarring/atelectasis. The lungs and pleural spaces are otherwise clear. No pneumothorax is seen. The skeletal structures are osteopenic. The bony thorax is grossly intact. IMPRESSION: No acute cardiopulmonary abnormality. ACT 112: Negative or not required by law. Electronically signed by: Brian Gunderson M.D. 06/25/2023 2:08 PM LE duplex - outpatient study - RLE occlusive DVT Hospital Course (1) Right leg DVT: 67 y/o with remote prior RLE DVT presented with acute DVT right lower extremity. Again this patient has been on Eliquis for the last 2 weeks due to her recent stroke (2.5 mg bid). She has been compliant with her Eliquis the last 2 weeks. She noticed the swelling after starting on Eliquis. Therefore this is considered an Eliquis failure. Consultation obtained with hematology Dr. Franlkin, recommended anticoagulation with warfarin. -started on enoxaparin 1 mg/kg sq q12h, bridging onto coumadin -coumadin 10 mg x 1 on 06/25 then 5 mg daily starting dose -RLE DVT minimally symptomatic at this time, improved with anticoagulation -I counseled her on risks:benefits of anticoagulation -anticoagulation clinic referral made -primary care follow up for INR check Wednesday 06/28 - PCP is Dr. Stock - I discussed with her and she said she will be able to follow up the INR check and adjust anticoagulants accordingly. Joanna prefers to have her blood drawn at [facility]. She will discuss this with Dr. Stock and I also gave her lab slip for PT/INR fax results to Dr. Stock -she will follow up with Dr. Franklin as well. Has had thorough hypercoagulability workup in the past which was negative -likely to need lifelong anticoagulation Plan ASD Cerebellar stroke 03/2023 - reviewed discharge summary from [facility] - presented with acute stroke, CTA showed basilar artery subocclusive thrombus. Brain MRI with acute to subacute R cerebellar lacunar stroke, bilateral chronic cerebellar lacunes. TTE with small ASD +shunt, EF 60-65%, negative LE duplex. Discharged on aspirin and statin. In interim she had ambulatory cardiac monitoring and Jaonna reports she just got a call that this was normal. Is going to have repeat CTA head/neck next week to follow up the basilar artery thrombus - per the stroke neurologist. -ASA was held when she was started on apixaban -continue holding ASA because now she is on full strength anticoagulation -continue statin (LDL 66) -balance/mobility has improved now only requiring cane Hypertension. Continue same home meds. Dyslipidemia. Continue same home meds. Remote history of DVT same extremity. 2001./Said to be provoked. Osteoarthritis. Stable. Debility from recent stroke in March 2023. Improving with outpatient therapy. replaced mild hypokalemia po DVT ppx: anticoagulated Total Time Total Time Spent Total Time Spent (In Minutes): I personally spent: 55 minutes today on clinical care activities including: reviewing chart notes and vital signs reviewing labs discussion with nonfarm animal caretaker examining and counseling the patient Arranging follow-up, faxing labs to [facility] for CT scan writing orders, discharge instructions, prescriptions documentation Discharge Plan Discharge Items Patient Disposition: Home - Self-Care Reason For Visit: DVT Discharge Diagnosis: RLE DVT Activity: Resume your previous activity Weightbearing: Full weightbearing Non-emergency contact: Primary Care Provider and Oncologist Call non-emergency contact if: you have any medication questions and your symptoms worsen Follow-up/Referrals: Stephanie Stock DO [Primary Care Provider] - 07/05/23 1:00 pm Diet: Regular Ambulatory Orders: Prothrombin Time INR (Routine) Timeframe: 1 Week Location: Determined by Patient Ordered By: Alison Clark Attending Provider Instructions: Right leg DVT (blood clot in vein), despite being on low dose Eliquis Dr. Franklin recommended warfarin (AKA coumadin). You need to take enoxaparin (AKA lovenox) injection twice a day until the warfarin "kicks in" typically around day 5 Continue taking enoxaparin and warfarin until your doctor tells you to stop the enoxaparin, then continue warfarin alone - this will require dose adjustment The goal protime is 2.0-3.0. This is a lab test used to adjust warfarin dosing Get your blood drawn Sunday - I spoke with Dr. Stock and her office will follow up the lab test and give you instructions. You will probably also need a blood draw on Sunday. I made a referral to the anticoagulation clinic at [facility] Follow up with Dr. Franklin as scheduled Medication Instructions: * Warfarin is a medicine prescribed to prevent blood clots * Warfarin will thin your blood and help prevent new clots * Take your medications exactly as directed * Never skip a dose. Never take a double dose. If you miss a dose, take it as soon as you remember * It is important for your doctor to monitor your prothrombin time (PT). This is a lab test * Keep your appointment for lab tests Risk of Adverse Drug Reactions and Interactions: * Warfarin increases your risk of bleeding * The food you eat and other medications you take can affect how Warfarin works in your body * Ask your doctor about daily aspirin therapy * It is very important to talk with your doctor about all of the other medicines, antibiotics, vitamins or herbal products that you are taking * All of your medication must be approved by your doctor, including new medicines, as well as medicines you have taken before you started taking Warfarin Diet: * In order for Warfarin to work properly, it is important to keep your intake of Vitamin K as consistent as possible * You should avoid any sudden change in Vitamin K intake * Report any significant changes in your diet or weight to your doctor Call your Primary Care doctor if you experience any of the following: * Swelling or Pain in your leg * Sudden, continuous pain deep in a muscle * Pain that worsens when you are active or when you stand still for a long time * Chest Pain * Sudden Shortness of Breath * Rapid or pounding heart beat * Fainting * Dizziness * Cough with blood or bloody sputum * Sweating more than normal * Bruises * Heavy or uncontrolled bleeding * Blood in your urine, stool or vomit * Black or tarry stools Caring for Your Self at Home: * Avoid sitting, standing or lying down for long periods without moving your legs and feet * When traveling by car, stop to get out and move around at least once every 3 hours * On long airplane, train or bus rides, get up and move around when possible * If you can't get up, wiggle your toes and tighten your calves to keep your blood moving Follow Up: It is important for you to keep your follow up appointments with your medical provider. Pending Studies at Discharge: No Stand-Alone Forms: My [facility], Smoking Cessation Medications and DC Order Prescriptions: New enoxaparin [Lovenox] 80 mg/0.8 mL Syringe 70 mg subcut Q12H 7 Days Qty: 9.8 0RF warfarin 5 mg Tablet 5 mg PO DAILY@1600 Qty: 10 0RF Continued pravastatin 20 mg tablet 0 mg PO DAILY Rx Instructions: unable to verify vitamin B complex [B Complex-Vitamin B12] Tablet 1 tab PO DAILY Rx Instructions: otc unable to verify 06/25/23 cholecalciferol (vitamin D3) 25 mcg (1,000 unit) capsule 25 mcg PO DAILY Rx Instructions: otc unable to verify 06/25/23 atorvastatin 40 mg tablet 40 mg PO HS trazodone 50 mg tablet 25 mg PO HS gabapentin 800 mg tablet 0 mg PO UD Rx Instructions: last filled in February 2023 losartan-hydrochlorothiazide 50-12.5 mg tablet 1 tab PO DAILY Held aspirin 325 mg tablet,delayed release (DR/EC) 325 mg PO DAILY Hold Instructions: Resume on 07/25/23. hold until discussed with your doctor Discontinued Eliquis 2.5 mg tablet 2.5 mg PO BID Discharge Orders: Discharge Order (Routine); Ordered 06/27/23 Ordered By: Alison Roger/Other Patient Handouts: Vitamin K Diet for Warfarin, Enoxaparin Injectable Solution, What to Know When TakingWarfarin Admission Data Admit Date/Time: 06/25/23 14:17 Attending Provider: Alison Iniguez Admit Provider: Hever Hinton Primary Care Provider: Stephanie Stock Other Providers: Ilya Sheikh; Hever Hinton; Karen Franklin Other Interventions: Discharge Summary Assessment (RN) Last Done: 06/27/23 12:11 Coding Level of Care Code 24958 INP/OBS DISCH >30 MIN Diagnoses Right leg DVT I82.401 Affected thrombotic vein of extremity: unspecified vein of extremity Chronicity: acute
[2023-06-27] MEDS ORDERED: WARFARIN SOD 5 MG TAB PO SCH (16:00)
== END 2023-06-27 14:01 | disposition home or self-care (01) | DRG 300 ==
LOC: ED 12:02 → EDINP 14:17 → SUATTDRO 14:17 → 1E 15:34 → 3N 06-26 15:40